=== PATIENT | female | born 2000 | race Caucasian/White ===

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

== ENCOUNTER 2018-07-07 15:32 | Emergency (ER) | payer OTHER ==
[~2018-07-07] VITALS: Ht 162.6 cm; Wt 69.9 kg
[2018-07-07 16:27] VITALS: Ht 162.6 cm; Wt 69.9 kg
[2018-07-07 17:05] VITALS: BP 122/60
== END 2018-07-07 17:05 | disposition home or self-care (01) ==
LOC: ED 15:32
DX: H10.9 Unspecified conjunctivitis (principal); F90.9 Attention-deficit hyperactivity disorder, unspecified type; Z91.018 Allergy to other foods